=== PATIENT | female | born 1955 | race African-American/Black ===

== ENCOUNTER → 2018-07-11 | Day surgery (SDC) | payer OTHER ==
--- OUTSIDE RECORDS SUMMARY | 2018-07-11 09:22 | XMS REPORT ---
:1955 [facility] Address [address] Sotomayor [address] [place] [id number] Care Team Providers Name Role Phone Unavailable Unavailable Unavailable Problems This patient has no known problems. Allergies, Adverse Reactions, Alerts This patient has no known allergies or adverse reactions. Medications This patient has no known medications.
--- NOTE | 2018-07-11 10:58 | RAD REPORT ---
EXAM DESCRIPTION: US - Guided FNA Non Breast - 07/11/2018 10:40 am CLINICAL HISTORY: E04.2 COMPARISON: No comparisons FINDINGS: Preoperative diagnosis: Left thyroid nodule. Post operative diagnosis: Same. Conscious Sedation: None Fluoroscopy time: None Contrast used: None Estimated blood loss: Minimal Specimens:5 x 25 gauge FNA samples The left neck was prepped and draped in the usual sterile fashion. 1% lidocaine was infiltrated into the subcutaneous tissues for local anesthesia. Real time ultrasound scanning of the left neck demonst rated prominent nodule. Under ultrasound guidance, using 25 gauge FNA needle, 5 specimens were obtain ed of this lesion and sent to pathology for evaluation. There were no complications. IMPRESSION: Successful ultrasound-guided left thyroid nodule FNA procedure.
== END | disposition home or self-care (01) ==
LOC: FNA 09:17
PROVIDERS: ATTEND Internal Medicine
PROC: 0G9G3ZX Drainage of Left Thyroid Gland Lobe, Percutaneous Approach, Diagnostic (ICD-10-PCS; principal; 2018-07-11)
PROC: BG44ZZZ Ultrasonography of Thyroid Gland (ICD-10-PCS; 2018-07-11)
DX: E04.2 Nontoxic multinodular goiter (principal)
CPT/HCPCS: 88162; 88305

== ENCOUNTER 2018-07-13 10:50 | Emergency (ER) | payer OTHER ==
--- OUTSIDE RECORDS SUMMARY | 2018-07-13 10:53 | XMS REPORT ---
:1955 [facility] Address [address] Sotomayor [address] [place] [id number] Care Team Providers Name Role Phone Unavailable Unavailable Unavailable Problems This patient has no known problems. Allergies, Adverse Reactions, Alerts This patient has no known allergies or adverse reactions. Medications This patient has no known medications.
--- NOTE | 2018-07-13 11:51 | RAD REPORT ---
EXAM DESCRIPTION: Liv Single View07/13/2018 11:45 am CLINICAL HISTORY: Chest pain COMPARISON: 2012 FINDINGS: The lungs appear clear of acute infiltrate. The heart is normal size IMPRESSION: No acute abnormalities displayed
[2018-07-13] MEDS ORDERED: MORPHINE 4 MG/ML SYR ONE (13:24)
[2018-07-13] MEDS ORDERED: ONDANSETRON 4 MG/2 ML VIAL ONE (13:24)
[2018-07-13 13:26] LABS: Absolute Monocytes 0.4 K/uL (0.1-1.3); Absolute Neutrophil 3.1 K/uL (1.8-8.0); Basophils % 1.1 % (0-1.3); Lymphocytes % 20.8 % (15.3-44.8); MPV 8.5 fL (7.6-11.3); Monocytes % 8.6 % (3.3-12.3)
[2018-07-13 13:31] LABS: Protime INR 1.05
[2018-07-13 13:39] LABS: ALT/SGPT 27 U/L (12-78); AST/SGOT 16 U/L (15-37); Albumin 4.1 g/dL (3.4-5.0); Alkaline Phosphatase 133 U/L (45-117); BUN Blood Urea Nitrogen 15 mg/dL (7-18); Bicarbonate 26 mmol/L (21-32); Bilirubin Direct 0.1 mg/dL (0-0.2); Bilirubin Total 0.5 mg/dL (0.2-1.0); Glucose Level 116 mg/dL (74-106); Magnesium 2.2 mg/dL (1.8-2.4); NT PRO-BNP 26 pg/mL (<125); Protein, Total 7.5 g/dL (6.4-8.2); Sodium Level 143 mmol/L (136-145); Troponin (Emerg Dept Use Only) < 0.02 ng/mL (0.0-0.045)
--- NOTE | 2018-07-13 13:50 | ER ---
Nurse's Notes [facility] Name: Jayleen Grove Age: 62 yrs Sex: Female : 1955 Arrival Date: 07/13/2018 Time: 10:51 Bed 14 Private MD: Diagnosis: Chest pain, unspecified Presentation: 07/13 10:59 Presenting complaint: Patient states: Substernal chest pressure x 3 days. Pt concerned hb pain is related to left chest skin biopsy 4 days ago. Transition of care: patient was not received from another setting of care. Onset of symptoms was July 11, 2018. Risk Assessment: Do you want to hurt yourself or someone else? Patient reports no desire to harm self or others. Initial Sepsis Screen: Does the patient meet any 2 criteria? No. Patient's initial sepsis screen is negative. Does the patient have a suspected source of infection? No. Patient's initial sepsis screen is negative. Care prior to arrival: None. 10:59 Method Of Arrival: Ambulatory hb 10:59 Acuity: RAMIREZ 3 hb Historical: - Allergies: 11:05 No Known Allergies; hb - Home Meds: 11:05 amlodipine 5 mg oral tab once daily [Active]; aspirin 81 mg oral chew once daily hb [Active]; atorvastatin 10 mg oral tab 1 tab once daily [Active]; valsartan 160 mg oral tab once daily [Active]; Jardiance 10 mg oral tab 1 tab once daily [Active]; glyburide-metformin 5-500 mg oral tab 1 tab 2 times per day [Active]; Victoza 2-Fady 0.6 mg/0.1 mL (18 mg/3 mL) subcutaneous pnij 0.2 mL once daily [Active]; - PMHx: 11:05 Diabetes - NIDDM; Hypertension; hb - PSHx: 11:05 Hysterectomy; Cholecystectomy; back surgery; hb - Immunization history:: Adult Immunizations up to date. - Social history:: Smoking status: Patient/guardian denies using tobacco. - Ebola Screening: : No symptoms or risks identified at this time. Screenin:55 Abuse screen: Denies threats or abuse. Nutritional screening: No deficits noted. rb1 Tuberculosis screening: No symptoms or risk factors identified. Fall Risk None identified. Assessment: 10:55 General: Appears in no apparent distress. comfortable, Behavior is calm, cooperative, rb1 Denies fever. Pain: Complains of pain in chest pressure Pain does not radiate. Pain began Tuesday. Neuro: Level of Consciousness is awake, alert, obeys commands, Oriented to person, place, time, situation. Cardiovascular: Capillary refill < 3 seconds is brisk in bilateral fingers Rhythm is regular. Respiratory: Airway is patent Respiratory effort is even, unlabored, Respiratory pattern is regular, symmetrical. Respiratory: Reports cough that is non-productive. GI: No signs and/or symptoms were reported involving the gastrointestinal system. : No signs and/or symptoms were reported regarding the genitourinary system. Derm: Skin is dry, Skin is normal, Skin temperature is warm. 11:55 Reassessment: Patient appears in no apparent distress at this time. No changes from rb1 previously documented assessment. 12:55 Reassessment: Patient appears in no apparent distress at this time. Patient and/or rb1 family updated on plan of care and expected duration. Pain level reassessed. Patient is alert, oriented x 3, equal unlabored respirations, skin warm/dry/pink. 13:55 Reassessment: Patient appears in no apparent distress at this time. No changes from rb1 previously documented assessment. Family at bedside. 14:10 Reassessment: Discharge pending due to provider needing to speak with the pt. rb1 14:20 Reassessment: Patient appears in no apparent distress at this time. Patient and/or rb1 family updated on plan of care and expected duration. Pain level reassessed. Patient is alert, oriented x 3, equal unlabored respirations, skin warm/dry/pink. Pt. requested medication for pain. Provider notified. 14:45 Reassessment: Provider at bedside speaking with the pt. and her family. rb1 Vital Signs: 11:02 BP 164 / 101; Pulse 81; Resp 16; Temp 97.; Pulse Ox 100% on R/A; Pain 9/10; hb 12:17 BP 139 / 79; Pulse 69; Resp 16; Temp 97.2(O); Pulse Ox 98% on R/A; mh5 13:17 BP 150 / 86; Pulse 90; Resp 13; Pulse Ox 99% on R/A; Pain 9/10; rb1 14:17 BP 128 / 76; Pulse 87; Resp 17; Pulse Ox 98% ; Pain 7/10; rb1 15:00 BP 134 / 86; Pulse 83; Resp 16; Pulse Ox 97% on R/A; rb1 ED Course: 10:51 Patient arrived in ED. as 10:55 Patient maintains SpO2 saturation greater than 95% on room air. rb1 11:02 Triage completed. hb 11:02 Christiano Malin, PARDEEP is PHCP. pm1 11:02 Solomon Emanuel MD is Attending Physician. pm1 11:02 Arm band placed on. hb 11:10 Lillian Rowe, RUBEN is Primary Nurse. rb1 11:21 EKG done, by piano technician. reviewed by Christiano Malin NP. at1 11:44 X-ray completed. Portable x-ray completed in exam room. Patient tolerated procedure sw well. 11:45 XRAY Chest (1 view) In Process Unspecified. EDFL 11:53 Basic Metabolic Panel Sent. 5 11:53 CBC with Diff Sent. 5 11:53 LFT's Sent. 5 11:53 Magnesium Sent. 5 11:53 NT PRO-BNP Sent. 5 11:53 PT-INR Sent. 5 11:53 Troponin (emerg Dept Use Only) Sent. 5 11:53 Initial lab(s) drawn, by tn, sent to lab. Inserted saline lock: 22 gauge in left 5 antecubital area, using aseptic technique. Blood collected. 11:54 Patient has correct armband on for positive identification. Bed in low position. Call [facility] light in reach. Side rails up X 1. Adult w/ patient. Warm blanket given. shelter monitor on. Pulse ox on. NIBP on. 15:06 No provider procedures requiring assistance completed. IV discontinued, intact, rb1 bleeding controlled, No redness/swelling at site. Pressure dressing applied. Administered Medications: 13:20 Drug: morphine 4 mg Route: IVP; Site: left antecubital; rb1 13:35 Follow up: Response: No adverse reaction; Pain is decreased rb1 13:20 Drug: Zofran 4 mg Route: IVP; Site: left antecubital; rb1 13:35 Follow up: Response: No adverse reaction rb1 14:33 Drug: TORadol 30 mg Route: IVP; Site: left antecubital; rb1 14:50 Follow up: Response: No adverse reaction; Pain is unchanged, physician notified rb1 14:33 Drug: Flexeril 10 mg Route: PO; rb1 15:00 Follow up: Response: No adverse reaction; Pain is unchanged, physician notified rb1 Outcome: 13:49 Discharge ordered by . pm1 15:06 Patient left the ED. rb1 15:06 Discharged to home ambulatory, with family. rb1 15:06 Condition: stable 15:06 Discharge instructions given to patient, Instructed on discharge instructions, follow up and referral plans. medication usage, Demonstrated understanding of instructions, follow-up care, medications, Prescriptions given X 1. Signatures: Dispatcher [employer] Lizzeth Rincon Amanda, associate embalmer/funeral director EKG Tat1 Jannette Frankel Rebecca, RN RN rb1 Christiano Malin NP US MARKETING DIRECTOR pm1 Sonal Davidson RN RN Fior Marie [facility]
--- NOTE | 2018-07-13 13:50 | EDPHYS ---
Physician Documentation [facility] Name: Jayleen Grove Age: 62 yrs Sex: Female : 1955 Arrival Date: 07/13/2018 Time: 10:51 Bed 14 Private MD: ED Physician Solomon Emanuel HPI: 07/13 12:03 This 62 yrs old Black Female presents to ER via Ambulatory with complaints of Chest pm1 Pressure, Headache. 12:03 The patient or guardian reports chest pain that is located primarily in the mid-sternal pm1 area. 12:03 Onset: 3 day(s) ago. The pain does not radiate. Associated signs and symptoms: pm1 Pertinent positives: headache 4 days ago that resolved prior to the chest pain, Pertinent negatives: abdominal pain, cough, diaphoresis, dizziness, nausea, shortness of breath, vomiting. The chest pain is described as sharp. Duration: The patient or guardian reports a single episode, that is still ongoing. Modifying factors: The symptoms are alleviated by nothing. the symptoms are aggravated by palpation of area. Severity of pain: in the emergency department the pain is unchanged. The patient has not experienced similar symptoms in the past. The patient has been recently seen by a physician: Biopsy of left thyroid nodule 4 days ago. Patient is concerned that her chest pain is related to the biopsy procedure. Historical: - Allergies: 11:05 No Known Allergies; hb - Home Meds: 11:05 amlodipine 5 mg oral tab once daily [Active]; aspirin 81 mg oral chew once daily hb [Active]; atorvastatin 10 mg oral tab 1 tab once daily [Active]; valsartan 160 mg oral tab once daily [Active]; Jardiance 10 mg oral tab 1 tab once daily [Active]; glyburide-metformin 5-500 mg oral tab 1 tab 2 times per day [Active]; Victoza 2-Fady 0.6 mg/0.1 mL (18 mg/3 mL) subcutaneous pnij 0.2 mL once daily [Active]; - PMHx: 11:05 Diabetes - NIDDM; Hypertension; hb - PSHx: 11:05 Hysterectomy; Cholecystectomy; back surgery; hb - Immunization history:: Adult Immunizations up to date. - Social history:: Smoking status: Patient/guardian denies using tobacco. - Ebola Screening: : No symptoms or risks identified at this time. ROS: 12:03 Constitutional: Negative for fever, chills, and weight loss, Eyes: Negative for injury, pm1 pain, redness, and discharge, ENT: Negative for injury, pain, and discharge, Neck: Negative for injury, pain, and swelling. 12:03 Respiratory: Negative for shortness of breath, cough, wheezing, and pleuritic chest pain, Abdomen/GI: Negative for abdominal pain, nausea, vomiting, diarrhea, and constipation, Back: Negative for injury and pain, : Negative for injury, bleeding, discharge, and swelling, MS/Extremity: Negative for injury and deformity, Skin: Negative for injury, rash, and discoloration, Neuro: Negative for headache, weakness, numbness, tingling, and seizure. 12:03 Cardiovascular: Positive for chest pain, Negative for edema, orthopnea, palpitations, paroxysmal nocturnal dyspnea. Exam: 12:03 Constitutional: This is a well developed, well nourished patient who is awake, alert, pm1 and in no acute distress. Head/Face: Normocephalic, atraumatic. Eyes: Pupils equal round and reactive to light, extra-ocular motions intact. Lids and lashes normal. Conjunctiva and sclera are non-icteric and not injected. Cornea within normal limits. Periorbital areas with no swelling, redness, or edema. ENT: Nares patent. No nasal discharge, no septal abnormalities noted. Tympanic membranes are normal and external auditory canals are clear. Oropharynx with no redness, swelling, or masses, exudates, or evidence of obstruction, uvula midline. Mucous membranes moist. Neck: Trachea midline, no thyromegaly or masses palpated, and no cervical lymphadenopathy. Supple, full range of motion without nuchal rigidity, or vertebral point tenderness. No Meningismus. 12:03 Cardiovascular: Regular rate and rhythm with a normal S1 and S2. No gallops, murmurs, or rubs. Normal PMI, no JVD. No pulse deficits. Respiratory: Lungs have equal breath sounds bilaterally, clear to auscultation and percussion. No rales, rhonchi or wheezes noted. No increased work of breathing, no retractions or nasal flaring. Abdomen/GI: Soft, non-tender, with normal bowel sounds. No distension or tympany. No guarding or rebound. No evidence of tenderness throughout. Back: No spinal tenderness. No costovertebral tenderness. Full range of motion. Skin: Warm, dry with normal turgor. Normal color with no rashes, no lesions, and no evidence of cellulitis. MS/ Extremity: Pulses equal, no cyanosis. Neurovascular intact. Full, normal range of motion. 12:03 Chest/axilla: Inspection: normal, Palpation: tenderness, that is mild, of the mid-sternal area, that totally reproduces the patient's complaints. 12:03 Neuro: Orientation: is normal, Motor: is normal, moves all fours, Gait: is steady, at a normal pace, without difficulty. Vital Signs: 11:02 BP 164 / 101; Pulse 81; Resp 16; Temp 97.; Pulse Ox 100% on R/A; Pain 9/10; hb 12:17 BP 139 / 79; Pulse 69; Resp 16; Temp 97.2(O); Pulse Ox 98% on R/A; mh5 13:17 BP 150 / 86; Pulse 90; Resp 13; Pulse Ox 99% on R/A; Pain 9/10; rb1 14:17 BP 128 / 76; Pulse 87; Resp 17; Pulse Ox 98% ; Pain 7/10; rb1 15:00 BP 134 / 86; Pulse 83; Resp 16; Pulse Ox 97% on R/A; rb1 MDM: 11:10 Patient medically screened. pm1 13:48 Data reviewed: vital signs. Data interpreted: Pulse oximetry: on room air is 99 %. pm1 Interpretation: normal. Counseling: I had a detailed discussion with the patient and/or guardian regarding: the historical points, exam findings, and any diagnostic results supporting the discharge/admit diagnosis, lab results, radiology results, the need for outpatient follow up, to return to the emergency department if symptoms worsen or persist or if there are any questions or concerns that arise at home. 07/13 11:07 Order name: Basic Metabolic Panel; Complete Time: 13:48 pm1 07/13 11:07 Order name: CBC with Diff; Complete Time: 13:48 pm1 07/13 11:07 Order name: LFT's; Complete Time: 13:48 pm1 07/13 11:07 Order name: Magnesium; Complete Time: 13:48 pm1 07/13 11:07 Order name: NT PRO-BNP; Complete Time: 13:48 pm1 07/13 11:07 Order name: PT-INR; Complete Time: 13:48 pm1 07/13 11:07 Order name: Troponin (emerg Dept Use Only); Complete Time: 13:48 pm1 07/13 11:07 Order name: XRAY Chest (1 view); Complete Time: 11:53 pm1 07/13 11:07 Order name: EKG; Complete Time: 11:08 pm07/13 11:07 Order name: Cardiac monitoring; Complete Time: 11:19 pm07/13 11:07 Order name: EKG - Nurse/Tech; Complete Time: 11:19 pm07/13 11:07 Order name: IV Saline Lock; Complete Time: 11:53 pm07/13 11:07 Order name: Labs collected and sent; Complete Time: 12:02 pm1 07/13 11:07 Order name: O2 Per Protocol; Complete Time: 11:19 pm07/13 11:07 Order name: O2 Sat Monitoring; Complete Time: 11:19 pm1 Administered Medications: 13:20 Drug: morphine 4 mg Route: IVP; Site: left antecubital; rb1 13:35 Follow up: Response: No adverse reaction; Pain is decreased rb1 13:20 Drug: Zofran 4 mg Route: IVP; Site: left antecubital; rb1 13:35 Follow up: Response: No adverse reaction rb1 14:33 Drug: TORadol 30 mg Route: IVP; Site: left antecubital; rb1 14:50 Follow up: Response: No adverse reaction; Pain is unchanged, physician notified rb1 14:33 Drug: Flexeril 10 mg Route: PO; rb1 15:00 Follow up: Response: No adverse reaction; Pain is unchanged, physician notified rb1 Disposition: 16:20 Co-signature as Attending Physician, Solomon Emanuel MD I agree with the assessment and kdr plan of care. Disposition: 07/13/18 13:49 Discharged to Home. Impression: Chest pain, unspecified. - Condition is Stable. - Discharge Instructions: Nonspecific Chest Pain. - Prescriptions for Tramadol 50 mg Oral Tablet - take 1 tablet by ORAL route every 8 hours as needed; 12 tablet. - Medication Reconciliation Form, Thank You Letter, Antibiotic Education, Prescription Opioid Use form. - Follow up: Emergency Department; When: As needed; Reason: Worsening of condition. Follow up: Private Physician; When: 2 - 3 days; Reason: Recheck today's complaints, Continuance of care, Re-evaluation by your physician. - Problem is new. - Symptoms have improved. Signatures: Dispatcher [employer] EDMS Solomon Emanuel MD MD kdr Lillian Rowe RN RN rb1 Christiano Malin NP DUPLICATING MACHINE MECHANIC pm1 Sonal Davidson RN RN Corrections: (The following items were deleted from the chart) 15:06 13:49 07/13/2018 13:49 Discharged to Home. Impression: Chest pain, unspecified. rb1 Condition is Stable. Forms are Medication Reconciliation Form, Thank You Letter, Antibiotic Education, Prescription Opioid Use. Follow up: Emergency Department; When: As needed; Reason: Worsening of condition. Follow up: Private Physician; When: 2 - 3 days; Reason: Recheck today's complaints, Continuance of care, Re-evaluation by your physician. Problem is new. Symptoms have improved. pm1
[2018-07-13] MEDS ORDERED: KETOROLAC 30 MG/ML INJ ONE (14:43)
[2018-07-13] MEDS ORDERED: CYCLOBENZAPRINE 10 MG TAB ONE (14:43)
--- NOTE | 2018-07-14 06:17 | EKG ---
Test Date: 2018-07-13 Test Time: 11:08:47 Residence Director: GLADYS MEASUREMENT RESULTS: Intervals: Rate: 70 IL: 164 QRSD: 86 QT: 416 QTc: 449 Ferdinand: P: 52 IL: 164 QRS: -22 T: 64 INTERPRETIVE STATEMENTS: Normal sinus rhythm Minimal voltage criteria for LVH, may be normal variant Nonspecific T wave abnormality Abnormal ECG No previous ECG available for comparison Electronically Signed On 07-14-18 06:16:27 CDT by Edis Carvajal
== END 2018-07-13 15:06 | disposition home or self-care (01) ==
LOC: ER 10:50
DX: R51 Headache (principal); R07.9 Chest pain, unspecified; E11.9 Type 2 diabetes mellitus without complications; I10 Essential (primary) hypertension; Z79.82 Long term (current) use of aspirin; Z79.4 Long term (current) use of insulin
CPT/HCPCS: 36415; 71045; 80048; 80076; 83735; 83880; 84484; 85025; 85610; 93005; 96374; 96375; 99285; J2405